=== PATIENT | female | born 1995 | race Caucasian/White ===

== ENCOUNTER 2019-07-10 12:36 | Emergency (ER) | payer OTHER ==
[2019-07-10] MEDS ORDERED: LORazepam 0.5 MG Tab PO ONE (13:20)
--- NOTE | 2019-07-10 13:33 | EDM.PDOC ---
ED HPI GENERAL MEDICAL PROBLEM - General Chief Complaint: General Stated Complaint: INCREASE HR;DIZZINESS Time Seen by Provider: 07/10/19 13:12 Source of Information: Reports: Patient History Limitations: Reports: No Limitations - History of Present Illness INITIAL COMMENTS - FREE TEXT/NARRATIVE: Patient presents with fast heart rate. She has been having episodes of this several times a day for a week. The first one was 7 days ago in the evening and lasted about 20 minutes. Now they are usually from 5-20 minutes and are accompanied by anxiety. She says she has had some anxiety prior to this but it seems worse lately with the Covid scare. She was evaluated for this by her PCP two days ago in clinic and I reviewed those notes. Labs (TSH, T4, CMP, CBC) were normal at that time except WBC was 13.9 so will recheck that today. Patient has never taken anything for anxiety. - Related Data Allergies Allergy/AdvReac Type Severity Reaction Status Date / Time No Known Drug Allergies Allergy Other Verified 07/10/19 12:50 Home Meds: Home Meds . [No Known Home Meds] 07/10/19 [History] Past Medical History Cardiovascular History: Reports: None Respiratory History: Reports: None - Past Surgical History Other HEENT Surgeries/Procedures: Surgery to throat when she was approx one year to fix "hole in throat" Cardiovascular Surgical History: Reports: None Social & Family History - Family History Family Medical History: Noncontributory - Tobacco Use Smoking Status *Q: Never Smoker - Caffeine Use Caffeine Use: Reports: None - Recreational Drug Use Recreational Drug Use: No ED ROS GENERAL - Review of Systems Review Of Systems: See Below Constitutional: Denies: Fever, Weakness HEENT: Denies: Ear Pain, Throat Pain, Vision Change Respiratory: Reports: Shortness of Breath (SOB sensation with the anxiety and racing heart but no trouble breathing she says). Denies: Wheezing, Cough Cardiovascular: Denies: Chest Pain, Lightheadedness, Syncope GI/Abdominal: Reports: Vomiting (three times yesterday). Denies: Abdominal Pain , Diarrhea : Denies: Dysuria, Flank Pain Musculoskeletal: Denies: Neck Pain, Shoulder Pain, Arm Pain, Back Pain, Hand Pain, Leg Pain Skin: Denies: Cyanosis, Jaundice, Mottled, Pallor, Diaphoresis Neurological: Reports: Dizziness (has noticed this with the racing heart and anxiety), Tingling (a little in her legs). Denies: Confusion, Headache, Trouble Speaking, Difficulty Walking, Weakness, Change in Speech Psychiatric: Reports: Anxiety. Denies: Agitation, Confusion ED EXAM, GENERAL - Physical Exam Exam: See Below Exam Limited By: No Limitations General Appearance: Alert, WD/WN, No Apparent Distress, Obese Eye Exam: Bilateral Eye: EOMI, Normal Inspection, PERRL Ears: Normal External Exam, Hearing Grossly Normal Nose: Normal Inspection, No Blood Throat/Mouth: Normal Inspection, Normal Lips, Normal Voice, No Airway Compromise Head: Atraumatic, Normocephalic Neck: Normal Inspection, Full Range of Motion Respiratory/Chest: No Respiratory Distress, Lungs Clear, Normal Breath Sounds, No Accessory Muscle Use Cardiovascular: No Murmur, Tachycardia (with regular rhythm) GI/Abdominal: Normal Bowel Sounds, Soft, Non-Tender, No Organomegaly, No Distention Back Exam: Normal Inspection, Full Range of Motion. No: CVA Tenderness (L), CVA Tenderness (R) Extremities: Normal Inspection, Normal Range of Motion Neurological: Alert, Oriented, CN II-XII Intact, Normal Cognition, Normal Gait, No Motor/Sensory Deficits Psychiatric: Normal Affect, Anxious Skin Exam: Warm, Dry, Intact, Normal Color, No Rash EKG INTERPRETATION EKG Date: 07/10/19 Rate (Beats/Min): 113 Bennett: Normal P-Wave: Present QRS: Normal ST-T: Normal QT: Normal Course - Vital Signs Last Recorded V/S: Last Vital Signs Temp 99.3 F 07/10/19 14:41 Pulse 82 07/10/19 14:41 Resp 18 07/10/19 14:41 BP 131/62 07/10/19 14:41 Pulse Ox 98 07/10/19 14:41 - Orders/Labs/Meds Orders: Active Orders 24 hr Category Date Time Status EKG Documentation Completion [RC] ASDIRECTED Care 07/10/19 12:50 Active EKG 12 Lead [EK] Stat Ther 07/10/19 12:50 Ordered Labs: Laboratory Tests 07/10/19 07/10/19 Range/Units 13:32 14:00 WBC 12.29 H (5.00-10.00) 10^3/uL RBC 5.09 (3.80-5.50) 10^6/uL Hgb 13.9 (12.0-16.0) g/dL Hct 42.0 (37.0-47.0) % MCV 82.5 (82.0-92.0) fL MCH 27.3 (27.0-31.0) pg MCHC 33.1 (32.0-36.0) g/dL RDW 14.8 H (11.5-14.5) % Plt Count 391 D (150-400) 10^3/uL MPV 9.3 (7.4-10.4) fL Immature Gran % (Auto) 0.2 (0.0-5.0) % Neut % (Auto) 77.0 H (50.0-70.0) % Lymph % (Auto) 15.5 L (20.0-40.0) % [place] % (Auto) 7.0 (2.0-8.0) % Eos % (Auto) 0.1 L (1.0-3.0) % Baso % (Auto) 0.2 (0.0-1.0) % Immature Gran # (Auto) 0.03 (0.00-0.50) 10^3/uL Neut # (Auto) 9.46 H (2.50-7.00) 10^3/uL Lymph # (Auto) 1.90 (1.00-4.00) 10^3/uL [place] # (Auto) 0.86 H (0.10-0.80) 10^3/uL Eos # (Auto) 0.01 L (0.10-0.30) 10^3/uL Baso # (Auto) 0.03 (0.00-0.10) 10^3/uL Specimen Type Urincc Urine Color Light yellow (YELLOW) Urine Appearance Slightly cloudy H (CLEAR) Urine pH 7.0 (5.0-9.0) Ur Specific [place] 1.010 (1.005-1.030) Urine Protein Negative (NEGATIVE) mg/dL Urine Glucose (UA) Negative (NEGATIVE) mg/dL Urine Ketones Negative (NEGATIVE) mg/dL Urine Occult Blood Trace-intact H (NEGATIVE) Urine Nitrite Negative (NEGATIVE) Urine Bilirubin Negative (NEGATIVE) Urine Urobilinogen 0.2 (0.2-1.0) E.U./dL Ur Leukocyte Esterase Trace H (NEGATIVE) Urine RBC 0-5 (0-5) /HPF Urine WBC 5-10 H (0-5) /HPF Ur Epithelial Cells Moderate H /LPF Amorphous Sediment Few (0/HPF) /HPF Urine Bacteria Occasional (NONE TO FEW) /HPF Meds: Medications Discontinued Medications Generic Name Dose Route Start Last Admin Trade Name Freq PRN Reason Stop Dose Admin Lorazepam 0.5 mg 07/10/19 13:20 07/10/19 13:24 Ativan PO 07/10/19 13:21 0.5 mg ONETIME ONE Administration - Re-Assessments/Exams Free Text/Narrative Re-Assessment/Exam: 07/10/19 15:02 WBC is down to 12.3, UA shows mild evidence of a UTI so will treat presumptively and get culture too. Patient is feeling better after the Lorazepam; HR in the 80's. We discussed options and she will follow up with her PCP in a week for both the urine and anxiety. I gave her Macrobid and Lorazepam prn to try the next few days. Discharged to home in stable condition. Departure - Departure Time of Disposition: 14:59 Disposition: Home, Self-Care 01 Condition: Good Clinical Impression: Anxiety UTI (urinary tract infection) Qualifiers: Urinary tract infection type: acute cystitis Hematuria presence: without hematuria Qualified Code(s): N30.00 - Acute cystitis without hematuria - Discharge Information Instructions: Urinary Tract Infection, Adult, [id number], Living With Anxiety Referrals: Paty Moore PA-C [Primary Care Provider] - Forms: ED Department Discharge Additional Instructions: 1. Drink 8 cups of water daily. 2. Take the Macrobid as directed. 3. You can use the Lorazepam as directed if needed for anxiety, but avoid driving for 8 hours afterward. 4. Follow up with your PCP in a week for recheck of the urine and discussion of options for the anxiety if it continues. Sepsis Event Note - Evaluation Sepsis Screening Result: No Definite Risk - Focused Exam Vital Signs: Vital Signs Temp Pulse Resp BP Pulse Ox 07/10/19 14:41 99.3 F 82 18 131/62 98 07/10/19 14:00 100 136/94 H 07/10/19 13:25 95 20 151/83 H 97 07/10/19 12:55 99.9 F 130 H 22 H 150/77 H 98 07/10/19 12:50 106 H 20 136/94 H Date Exam was Performed: 07/10/19 Time Exam was Performed: 14:59 - My Orders Last 24 Hours: My Active Orders 07/10/19 12:50 EKG Documentation Completion [RC] ASDIRECTED EKG 12 Lead [EK] Stat - Assessment/Plan Last 24 Hours: My Active Orders 07/10/19 12:50 EKG Documentation Completion [RC] ASDIRECTED EKG 12 Lead [EK] Stat
== END 2019-07-10 15:10 | disposition home or self-care (01) ==
LOC: KA.ED 12:36
DX: N30.00 Acute cystitis without hematuria (principal); F41.9 Anxiety disorder, unspecified
CPT/HCPCS: 36415; 81001; 85025; 87086; 93005; 99283-25; A9270-GY

== ENCOUNTER 2019-10-08 06:53 | Day surgery (SDC) | payer OTHER ==
[~2019-10-08 06:53] MED LIST: Dexamethasone 4 MG/ML SDV ONE; Ketorolac 30 MG/ML SDV ONE; Midazolam 1 MG/ML 2 ML SDV ONE; Neostigmine Methylsulfate 10 MG/10 ML MDV ONE; Propofol 200 MG/20 ML SDV ONE; Scopolamine 1.5 MG Transdermal Patch ONE; ceFAZolin 1 GM Vial ONE; fentaNYL 250 MCG/5 ML SDV ONE
[2019-10-08] MEDS ORDERED: Succinylcholine 200 MG/10 ML MDV IV ONE (06:54)
[2019-10-08] MEDS ORDERED: Lactated Ringers 1,000 ML IV ONE (06:54)
[2019-10-08] MEDS ORDERED: Scopolamine 1.5 MG Transdermal Patch TOP ONE (06:54)
[2019-10-08] MEDS ORDERED: Ondansetron 4 MG/2 ML SDV IV ONE (06:54)
[2019-10-08] MEDS ORDERED: Dexamethasone 4 MG/ML SDV IV ONE (06:54)
[2019-10-08] MEDS ORDERED: ceFAZolin 1 GM Vial IV ONE (06:54)
[2019-10-08] MEDS ORDERED: Neostigmine Methylsulfate 10 MG/10 ML MDV IV ONE (06:54)
[2019-10-08] MEDS ORDERED: Glycopyrrolate 0.2 MG/ML 5 ML MDV IV ONE (06:54)
[2019-10-08] MEDS ORDERED: Propofol 200 MG/20 ML SDV IV ONE (06:54)
[2019-10-08] MEDS ORDERED: fentaNYL 250 MCG/5 ML SDV IV ONE (06:54)
[2019-10-08] MEDS ORDERED: Rocuronium 50 MG/5 ML Vial IV ONE (06:54)
[2019-10-08] MEDS ORDERED: Midazolam 1 MG/ML 2 ML SDV IV ONE (06:54)
[2019-10-08] MEDS ORDERED: Sodium Chloride 0.9% 10 ML Syringe FLUSH PRN (07:00)
[2019-10-08] MEDS ORDERED: Lactated Ringers 1,000 ML IV SCH (07:00)
[2019-10-08] MEDS ORDERED: Bupivacaine 0.5%/EPINEPHrine 1:200,000 30 ML SDV ONE ×2 (07:02→10:15)
[2019-10-08] MEDS ORDERED: Bacitracin/Neomycin/Polymyxin B Oint 0.9 GM U/D Packet ONE (07:04)
[2019-10-08] MEDS ORDERED: Lactated Ringers 0 ML ONE (07:13)
[2019-10-08] MEDS ORDERED: Propofol 200 MG/20 ML SDV ONE (08:25)
[2019-10-08] MEDS ORDERED: ceFAZolin 1 GM Vial ONE (08:37)
--- NOTE | 2019-10-08 09:07 | PCM.PN ---
- General Info Date of Service: 10/08/19 - Review of Systems Systems Review Comment:: 24-year-old female with persistent nausea and vomiting here for cholecystectomy. She is medically stable to proceed today. The results of her recent EGD are reviewed with her. No other reason for her symptoms has been identified. There is been no significant change in her health status since her last evaluation. I have again discussed the proposed cholecystectomy with the patient. Instructions and expectations reviewed. She agrees to proceed excepting risks. - Patient Data Vitals - Most Recent: Last Vital Signs Temp 99.4 F 10/08/19 07:03 Pulse 87 10/08/19 08:45 Resp 20 10/08/19 07:03 BP 154/71 H 10/08/19 08:45 Pulse Ox 98 10/08/19 07:03 Weight - Most Recent: 142.428 kg Lab Results Last 24 Hours: Laboratory Results - last 24 hr 10/08/19 Range/Units 08:48 Urine HCG, Qual Negative (NEGATIVE) Med Orders - Current: Current Medications Lactated Ringer's (Ringers, Lactated) 1,000 mls @ 50 mls/hr IV ASDIRECTED [facility] Last Admin: 10/08/19 07:22 Dose: 50 mls/hr Documented by: Sodium Chloride (Saline Flush) 10 ml FLUSH Q8HR PRN PRN Reason: keep vein open Discontinued Medications Bupivacaine HCl/Epinephrine Bitart (Marcaine 0.5%/Epinephrine 1:200,000) Confirm Administered Dose 30 ml .ROUTE .STK-MED ONE Stop: 10/08/19 07:03 Cefazolin Sodium (Ancef) Confirm Administered Dose 2 gm .ROUTE .STK-MED ONE Stop: 10/08/19 06:47 Dexamethasone (Dexamethasone) Confirm Administered Dose 4 mg .ROUTE .STK-MED ONE Stop: 10/08/19 06:48 Fentanyl (Sublimaze) Confirm Administered Dose 250 mcg .ROUTE .STK-MED ONE Stop: 10/08/19 06:47 Lactated Ringer's (Ringers, Lactated) Confirm Administered Dose 1,000 mls @ as directed .ROUTE .STK-MED ONE Stop: 10/08/19 07:14 Ketorolac Tromethamine (Toradol) Confirm Administered Dose 30 mg .ROUTE .STK-MED ONE Stop: 10/08/19 06:48 Midazolam HCl (Versed 1 Mg/Ml) Confirm Administered Dose 4 mg .ROUTE .STK-MED ONE Stop: 10/08/19 06:47 Neomycin/Polymyxin/Bacitracin (Triple Antibiotic Oint) Confirm Administered Dose 2 each .ROUTE .STK-MED ONE Stop: 10/08/19 07:05 Neostigmine Methylsulfate (Neostigmine Methylsulfate) Confirm Administered Dose 10 mg .ROUTE .STK-MED ONE Stop: 10/08/19 06:48 Propofol (Diprivan 20 Ml) Confirm Administered Dose 200 mg .ROUTE .STK-MED ONE Stop: 10/08/19 06:48 Scopolamine (Transderm-Scop) Confirm Administered Dose 1.5 mg .ROUTE .STK-MED ONE Stop: 10/08/19 06:49 Sevoflurane (Ultane) Confirm Administered Dose 250 ml .ROUTE .STK-MED ONE Stop: 10/08/19 06:48 Sepsis Event Note - Focused Exam Vital Signs: Vital Signs Temp Pulse Resp BP Pulse Ox 10/08/19 08:45 87 154/71 H 10/08/19 07:03 99.4 F 133 H 20 164/117 H 98 Date Exam was Performed: 10/08/19 Time Exam was Performed: 09:05 - Problem List Review Problem List Initiated/Reviewed/Updated: Yes - My Orders Last 24 Hours: My Active Orders 10/07/19 13:25 Resuscitation Status Routine 10/08/19 07:00 Peripheral IV Care [RC] . DIRECTED Lactated Ringers [Ringers, Lactated] 1,000 ml IV ASDIRECTED Sodium Chloride 0.9% [Saline Flush] 10 ml FLUSH Q8HR PRN Peripheral IV Insertion Adult [OM.PC] Routine 10/08/19 Breakfast Nothing Per Oral Diet [DIET] 10/08/19 08:30 Antiembolic Devices [RC] PER UNIT ROUTINE Patient to Empty Bladder [RC] ASDIRECTED Sequential Compression Device [OM.PC] Routine 10/08/19 09:00 Verify Patient Consent Obtain [RC] ASDIRECTED - Assessment Assessment:: Symptomatic gallbladder disease - Plan Plan:: Cholecystectomy
[2019-10-08] MEDS ORDERED: Bacitracin/Neomycin/Polymyxin B Oint 0.9 GM U/D Packet TOP ONE (10:15)
--- NOTE | 2019-10-08 11:06 | PCM.OPNOTE ---
- General Post-Op/Procedure Note Date of Surgery/Procedure: 10/08/19 Operative Procedure(s): Laparoscopic cholecystectomy Findings: Normal-appearing gallbladder and adjacent liver. No other abnormalities identified laparoscopically. Pre Op Diagnosis: Symptomatic gallbladder disease Post-Op Diagnosis: Same Anesthesia Technique: General ET Tube Primary Surgeon: Lalo Fleming Pathology: Gallbladder EBL in mLs: 10 Complications: None Condition: Good Free Text/Narrative:: Intake & Output 10/07/19 10/08/19 10/08/19 22:59 06:59 14:59 Intake Total 1300 Balance 1300
[2019-10-08] MEDS ORDERED: Sodium Chloride 0.9% 50 ML SDV FLUSH PRN (11:24)
--- NOTE | 2019-10-08 13:30 | OR ---
DATE OF SURGERY: 10/08/2019 SURGEON: Lalo Fleming MD PREOPERATIVE DIAGNOSIS: Symptomatic gallbladder disease. POSTOPERATIVE DIAGNOSIS: Symptomatic gallbladder disease. OPERATION PERFORMED: Laparoscopic cholecystectomy. INDICATIONS FOR SURGERY: This 24-year-old female has profound and persistent symptoms of nausea and vomiting. Although no gallstones were noted on evaluation. Additional workup indicates the gallbladder as the source of her symptoms and she comes for cholecystectomy. FINDINGS: The patient's gallbladder appears normal externally. There is no visible acute inflammation or other abnormality. Her liver also appears normal. Other structures are normal as viewed laparoscopically. DESCRIPTION OF PROCEDURE: The patient was taken to the operating room. She was given general endotracheal anesthesia and the abdomen was sterilely prepped with Betadine and draped. A supraumbilical stab wound incision was made. Through this, a Veress needle was inserted and pneumoperitoneum via this needle was achieved with carbon dioxide to a pressure of 15 mmHg. 5 mm trocars were placed in the subxiphoid midline and also in two areas of the right abdomen. All trocar sites were infiltrated with Marcaine prior to incision. Intraabdominal inspection was carried out and attention was turned to the gallbladder. It was secured with grasping forceps placed through the lateral trocars and retracted superiorly and anteriorly. Fatty tissue overlying the cystic duct and cystic artery were carefully cleared until the cystic artery is clearly identified. It was then doubly clipped and divided near the gallbladder. Additional dissection cleared the triangle of [place] to clearly and positively identify the cystic duct. Its junction with the gallbladder is also noted. Once this had been identified, it is milked and doubly clipped and divided near the gallbladder with great care being used to avoid any injury or compromise to the common bile duct. The gallbladder was then dissected free from the undersurface of the liver using the cautery device. Once the gallbladder had been completely freed, it was extracted through the umbilical trocar site. Reinspection of the gallbladder bed showed no sign of bleeding or any other complication. The pneumoperitoneum was evacuated. The fascia of the umbilical trocar site was closed with 0 Vicryl. Wounds were irrigated with Betadine and saline solution. Skin incisions approximated with interrupted 4-0 Vicryl in a subcuticular stitch. Benzoin and Steri-Strips followed by antibiotic ointment and sterile dressings were placed. The patient was awakened, extubated, and taken from the operating room in satisfactory condition. ESTIMATED BLOOD LOSS: 10 mL. COMPLICATIONS: None. PROGNOSIS: Good. /[id number]/MODL MTDD
== END 2019-10-08 14:28 | disposition home or self-care (01) ==
LOC: KA.SDS 06:53
PROVIDERS: ATTEND Surgery
PROC: 0FT44ZZ Resection of Gallbladder, Percutaneous Endoscopic Approach (ICD-10-PCS; principal; 2019-10-08)
DX: K81.1 Chronic cholecystitis (principal); F41.9 Anxiety disorder, unspecified; D72.829 Elevated white blood cell count, unspecified; R11.2 Nausea with vomiting, unspecified; R00.2 Palpitations; E55.9 Vitamin D deficiency, unspecified; Z83.3 Family history of diabetes mellitus; Z82.49 Family history of ischemic heart disease and other diseases of the circulatory system
CPT/HCPCS: 00790; 47562; 81025; A9270; J0330; J0690; J1100; J2250; J2405; J2704; J2710; J3010; J3490; J7120

== ENCOUNTER 2022-04-24 13:09 | Emergency (ER) | payer BC ==
[2022-04-24 13:53] LABS: ANION GAP 14.8 mmol/L (5-15); CHLORIDE,CL 107 mmol/L (98-107); SODIUM,NA 142 mmol/L (136-145)
[2022-04-24 13:54] LABS: ESTIMATED GFR 113 mL/min (>=60)
== END 2022-04-24 14:45 | disposition home or self-care (01) ==
LOC: KA.ED 13:09
DX: R30.0 Dysuria (principal); E66.9 Obesity, unspecified; Z68.31 Body mass index [BMI] 31.0-31.9, adult
CPT/HCPCS: 36415; 80053; 81001; 85025; 86140; 99283; 99284

== ENCOUNTER 2022-05-15 11:50 | Emergency (ER) | payer BC ==
[2022-05-15] MEDS ORDERED: Sodium Chloride 0.9% 1,000 ML IV ONE (12:13)
[2022-05-15] MEDS ORDERED: Sodium Chloride 0.9% 10 ML Syringe FLUSH PRN (12:13)
[2022-05-15 13:26] LABS: ANION GAP 14.1 mmol/L (5-15); CHLORIDE,CL 104 mmol/L (98-107); SODIUM,NA 140 mmol/L (136-145)
[2022-05-15 13:27] LABS: ESTIMATED GFR 103 mL/min (>=60)
[2022-05-15] MEDS ORDERED: Ondansetron 4 MG/2 ML SDV IVPUSH ONE (13:31)
== END 2022-05-15 14:25 | disposition home or self-care (01) ==
LOC: KA.ED 11:50
DX: F41.9 Anxiety disorder, unspecified (principal); E66.9 Obesity, unspecified; Z68.41 Body mass index [BMI] 40.0-44.9, adult; Z79.899 Other long term (current) drug therapy
CPT/HCPCS: 80053; 85025; 96361; 96374; 99283-25; 99284; J2405; J7030

== ENCOUNTER 2022-07-02 12:55 | Emergency (ER) | payer BC ==
[2022-07-02] MEDS ORDERED: Fluconazole 100 MG Tab PO ONE (13:18)
== END 2022-07-02 14:10 | disposition home or self-care (01) ==
LOC: KA.ED 12:55
DX: B37.2 Candidiasis of skin and nail (principal); E66.9 Obesity, unspecified; Z68.42 Body mass index [BMI] 45.0-49.9, adult
CPT/HCPCS: 81001; 99283; 99284; A9270-GY

== ENCOUNTER 2022-08-15 19:45 | Emergency (ER) | payer BC ==
[2022-08-15 20:09] VITALS: BP 150/91; PULSE 83
== END 2022-08-15 21:30 | disposition home or self-care (01) ==
LOC: KA.ED 19:45
DX: R42 Dizziness and giddiness (principal); F41.9 Anxiety disorder, unspecified; F32.A Depression, unspecified; E66.9 Obesity, unspecified; Z68.32 Body mass index [BMI] 32.0-32.9, adult
CPT/HCPCS: 99283; 99284

== ENCOUNTER 2022-10-18 18:56 | Emergency (ER) | payer BC ==
[2022-10-18] MEDS: Ondansetron 4 MG Tab.DIS PO ONE (19:37)
[2022-10-18] MEDS: LORazepam 2 MG/ML SDV IM ONE (19:37)
== END 2022-10-18 20:30 | disposition home or self-care (01) ==
LOC: KA.ED 18:56
DX: F41.9 Anxiety disorder, unspecified (principal); E66.9 Obesity, unspecified; Z68.35 Body mass index [BMI] 35.0-35.9, adult
CPT/HCPCS: 96372; 99283; 99284; A9270-GY; J2060

== ENCOUNTER 2022-10-25 18:27 | Emergency (ER) | payer BC ==
[2022-10-25 19:09] LABS: BASOPHILS ABSOLUTE AUTO 0.02 10^3/uL (0.00-0.10); BASOPHILS PERCENT AUTO 0.2 % (0.0-1.0); EOSINOPHILS ABSOLUTE AUTO 0.07 10^3/uL (0.10-0.30); EOSINOPHILS PERCENT AUTO 0.7 % (1.0-3.0); HEMATOCRIT 43.3 % (37.0-47.0); HEMOGLOBIN 14.2 g/dL (12.0-16.0); IMMATURE GRAN ABSOLUTE AUTO 0.01 10^3/uL (0.00-0.50); IMMATURE GRAN PERCENT AUTO 0.1 % (0.0-5.0); LYMPHOCYTES ABSOLUTE AUTO 2.64 10^3/uL (1.00-4.00); LYMPHOCYTES PERCENT AUTO 26.8 % (20.0-40.0); MEAN CORPUSCULAR HEMOGLOBIN 26.9 pg (27.0-31.0); MEAN CORPUSCULAR HGB CONC 32.8 g/dL (32.0-36.0); MEAN CORPUSCULAR VOLUME 82.2 fL (82.0-92.0); MEAN PLATELET VOLUME 9.3 fL (7.4-10.4); MONOCYTES ABSOLUTE AUTO 0.74 10^3/uL (0.10-0.80); MONOCYTES PERCENT AUTO 7.5 % (2.0-8.0); NEUTROPHILS ABSOLUTE AUTO 6.36 10^3/uL (2.50-7.00); NEUTROPHILS PERCENT AUTO 64.7 % (50.0-70.0); PLATELET COUNT,PLT 346 10^3/uL (150-400); RED BLOOD CELL COUNT 5.27 10^6/uL (3.80-5.50); RED CELL DISTRIBUTION WIDTH 14.2 % (11.5-14.5); WHITE BLOOD CELL COUNT,WBC 9.84 10^3/uL (5.00-10.00)
[2022-10-25 19:20] LABS: ALANINE AMINOTRANSFERASE,ALT 27 U/L (14-63); ALBUMIN 3.87 g/dL (3.40-5.00); ALKALINE PHOSPHATASE 70 U/L (46-116); ANION GAP 16.4 mmol/L (5-15); ASPARTATE AMNIOTRANSFERASE,AST 16 U/L (15-37); BILIRUBIN TOTAL 0.3 mg/dL (0.2-1.0); BLOOD UREA NITROGEN,BUN 13 mg/dL (7-18); CALCIUM 9.1 mg/dL (8.7-10.3); CARBON DIOXIDE,CO2 24.9 mmol/L (21.0-32.0); CHLORIDE,CL 104 mmol/L (98-107); CREATININE 0.85 mg/dL (0.51-1.17); EST CRCL DRUG DOSING (CG) 96.68 mL/min; ESTIMATED GFR 96 mL/min (>=60); ETHANOL BLOOD MEDICAL < 3 mg/dL (NOT DETECTED); GLUCOSE RANDOM 84 mg/dL (70-140); POTASSIUM,K 4.3 mmol/L (3.5-5.1); PROTEIN TOTAL,TP 7.3 g/dL (6.4-8.2); SODIUM,NA 141 mmol/L (136-145)
[2022-10-25 19:22] LABS: HCG QUALITATIVE,SERUM NEGATIVE (NEGATIVE)
[2022-10-25 20:14] LABS: AMPHETAMINES SCREEN, URINE NEGATIVE (NEGATIVE); BARBITURATE SCREEN,URINE NEGATIVE (NEGATIVE); BENZODIAZEPINES SCREEN,URINE NEGATIVE (NEGATIVE); COCAINE METABOLITES,URINE NEGATIVE (NEGATIVE); METHADONE SCREEN, URINE NEGATIVE (NEGATIVE); METHAMPHETAMINES SCREEN, URINE NEGATIVE (NEGATIVE); OXYCODONE SCREEN,URINE NEGATIVE (NEGATIVE); PCP SCREEN,URINE NEGATIVE (NEGATIVE); PROPOXYPHENE SCREEN,URINE NEGATIVE (NEGATIVE); TCA SCREEN,URINE NEGATIVE (NEGATIVE); THC SCREEN,URINE 50 NG/ML NEGATIVE (NEGATIVE)
[2022-10-25] MEDS: QUEtiapine 25 MG Tab PO ONE (20:45)
== END 2022-10-25 20:57 | disposition home or self-care (01) ==
LOC: KA.ED 18:27
DX: F41.8 Other specified anxiety disorders (principal); F42.9 Obsessive-compulsive disorder, unspecified; E66.9 Obesity, unspecified; Z79.899 Other long term (current) drug therapy; Z68.34 Body mass index [BMI] 34.0-34.9, adult
CPT/HCPCS: 36415; 80053; 80305-QW; 80307; 84703; 85025; 99283; 99284; A9270-GY

== ENCOUNTER 2022-10-29 14:57 | Emergency (ER) | payer BC ==
[2022-10-29] MEDS ORDERED: Diazepam 5 MG Tab PO ONE ×2 (16:29→17:08)
[2022-10-29 17:41] LABS: AMPHETAMINES SCREEN, URINE NEGATIVE (NEGATIVE); BARBITURATE SCREEN,URINE NEGATIVE (NEGATIVE); BENZODIAZEPINES SCREEN,URINE POSITIVE (NEGATIVE); COCAINE METABOLITES,URINE NEGATIVE (NEGATIVE); METHADONE SCREEN, URINE NEGATIVE (NEGATIVE); METHAMPHETAMINES SCREEN, URINE NEGATIVE (NEGATIVE); OXYCODONE SCREEN,URINE NEGATIVE (NEGATIVE); PCP SCREEN,URINE NEGATIVE (NEGATIVE); PROPOXYPHENE SCREEN,URINE NEGATIVE (NEGATIVE); TCA SCREEN,URINE NEGATIVE (NEGATIVE); THC SCREEN,URINE 50 NG/ML NEGATIVE (NEGATIVE)
== END 2022-10-29 17:15 | disposition home or self-care (01) ==
LOC: KA.ED 14:57
DX: F41.0 Panic disorder [episodic paroxysmal anxiety] (principal); F42.9 Obsessive-compulsive disorder, unspecified; E66.9 Obesity, unspecified; Z68.34 Body mass index [BMI] 34.0-34.9, adult
CPT/HCPCS: 80305-QW; 99283; 99284; A9270-GY

== ENCOUNTER 2022-11-04 20:37 | Emergency (ER) | payer BC ==
[2022-11-04] MEDS ORDERED: Sodium Chloride 0.9% 10 ML Syringe FLUSH PRN (21:05)
[2022-11-04 21:18] LABS: BASOPHILS ABSOLUTE AUTO 0.03 10^3/uL (0.00-0.10); BASOPHILS PERCENT AUTO 0.3 % (0.0-1.0); EOSINOPHILS ABSOLUTE AUTO 0.21 10^3/uL (0.10-0.30); EOSINOPHILS PERCENT AUTO 2.4 % (1.0-3.0); HEMATOCRIT 43.6 % (37.0-47.0); IMMATURE GRAN ABSOLUTE AUTO 0.02 10^3/uL (0.00-0.50); IMMATURE GRAN PERCENT AUTO 0.2 % (0.0-5.0); LYMPHOCYTES PERCENT AUTO 39.3 % (20.0-40.0); MEAN CORPUSCULAR HEMOGLOBIN 26.9 pg (27.0-31.0); MEAN CORPUSCULAR HGB CONC 32.1 g/dL (32.0-36.0); MEAN CORPUSCULAR VOLUME 83.8 fL (82.0-92.0); MONOCYTES ABSOLUTE AUTO 0.65 10^3/uL (0.10-0.80); MONOCYTES PERCENT AUTO 7.3 % (2.0-8.0); NEUTROPHILS PERCENT AUTO 50.5 % (50.0-70.0); RED CELL DISTRIBUTION WIDTH 14.7 % (11.5-14.5); WHITE BLOOD CELL COUNT,WBC 8.91 10^3/uL (5.00-10.00)
[2022-11-04 21:30] LABS: HCG QUALITATIVE,SERUM NEGATIVE (NEGATIVE)
[2022-11-04 21:36] LABS: ANION GAP 9.3 mmol/L (5-15); BLOOD UREA NITROGEN,BUN 10 mg/dL (7-18); CALCIUM 8.9 mg/dL (8.7-10.3); CHLORIDE,CL 104 mmol/L (98-107); CREATININE 0.73 mg/dL (0.51-1.17); EST CRCL DRUG DOSING (CG) 112.57 mL/min; ESTIMATED GFR 116 mL/min (>=60); GLUCOSE RANDOM 79 mg/dL (70-140); SODIUM,NA 132 mmol/L (136-145)
[2022-11-04 21:37] LABS: ACETAMINOPHEN < 0.0 ug/mL (10.0-30.0); ETHANOL BLOOD MEDICAL < 3 mg/dL (NOT DETECTED)
[2022-11-04 21:38] LABS: POTASSIUM,K 4.3 mmol/L (3.5-5.1)
[2022-11-04 21:43] LABS: PLATELET COUNT,PLT 290 10^3/uL (150-400)
[2022-11-04 22:07] LABS: AMPHETAMINES SCREEN, URINE NEGATIVE (NEGATIVE); BARBITURATE SCREEN,URINE NEGATIVE (NEGATIVE); BENZODIAZEPINES SCREEN,URINE POSITIVE (NEGATIVE); COCAINE METABOLITES,URINE NEGATIVE (NEGATIVE); METHADONE SCREEN, URINE NEGATIVE (NEGATIVE); METHAMPHETAMINES SCREEN, URINE NEGATIVE (NEGATIVE); OXYCODONE SCREEN,URINE NEGATIVE (NEGATIVE); PCP SCREEN,URINE NEGATIVE (NEGATIVE); PROPOXYPHENE SCREEN,URINE NEGATIVE (NEGATIVE); TCA SCREEN,URINE NEGATIVE (NEGATIVE); THC SCREEN,URINE 50 NG/ML NEGATIVE (NEGATIVE)
== END 2022-11-04 23:10 | disposition home or self-care (01) ==
LOC: KA.ED 20:37
DX: F42.9 Obsessive-compulsive disorder, unspecified (principal); F41.0 Panic disorder [episodic paroxysmal anxiety]; E66.9 Obesity, unspecified; Z68.34 Body mass index [BMI] 34.0-34.9, adult; Z79.899 Other long term (current) drug therapy
CPT/HCPCS: 36415; 80048; 80143; 80305-QW; 80307; 84703; 85025; 96374; 99283-25; 99284; J3360; J3490

== ENCOUNTER 2022-12-11 14:41 | Emergency (ER) | payer BC ==
[2022-12-11] MEDS: LORazepam 2 MG/ML SDV IM ONE (15:05)
== END 2022-12-11 15:15 | disposition home or self-care (01) ==
LOC: KA.ED 14:41
DX: F41.9 Anxiety disorder, unspecified (principal); F41.0 Panic disorder [episodic paroxysmal anxiety]
CPT/HCPCS: 96372; 99283; 99284; J2060

== ENCOUNTER 2022-12-25 07:37 | Emergency (ER) | payer BC ==
[2022-12-25] MEDS: Ondansetron 4 MG/2 ML SDV IVPUSH ONE (08:00)
[2022-12-25] MEDS: Sodium Chloride 0.9% 10 ML Syringe FLUSH PRN (08:00)
[2022-12-25] MEDS: Ondansetron 4 MG/2 ML SDV ONE (08:03)
[2022-12-25 08:11] LABS: BASOPHILS ABSOLUTE AUTO 0.03 10^3/uL (0.00-0.10); BASOPHILS PERCENT AUTO 0.4 % (0.0-1.0); EOSINOPHILS ABSOLUTE AUTO 0.11 10^3/uL (0.10-0.30); EOSINOPHILS PERCENT AUTO 1.6 % (1.0-3.0); HEMATOCRIT 45.7 % (37.0-47.0); HEMOGLOBIN 14.8 g/dL (12.0-16.0); LYMPHOCYTES ABSOLUTE AUTO 2.25 10^3/uL (1.00-4.00); LYMPHOCYTES PERCENT AUTO 33.3 % (20.0-40.0); MEAN CORPUSCULAR HGB CONC 32.4 g/dL (32.0-36.0); MEAN CORPUSCULAR VOLUME 83.2 fL (82.0-92.0); MEAN PLATELET VOLUME 9.6 fL (7.4-10.4); MONOCYTES ABSOLUTE AUTO 0.59 10^3/uL (0.10-0.80); MONOCYTES PERCENT AUTO 8.7 % (2.0-8.0); NEUTROPHILS ABSOLUTE AUTO 3.78 10^3/uL (2.50-7.00); PLATELET COUNT,PLT 355 10^3/uL (150-400); RED BLOOD CELL COUNT 5.49 10^6/uL (3.80-5.50); RED CELL DISTRIBUTION WIDTH 14.4 % (11.5-14.5); WHITE BLOOD CELL COUNT,WBC 6.76 10^3/uL (5.00-10.00)
[2022-12-25 08:17] LABS: CARBON DIOXIDE,CO2 25.2 mmol/L (21.0-32.0); CREATININE 0.76 mg/dL (0.51-1.17); EST CRCL DRUG DOSING (CG) 108.13 mL/min
[2022-12-25 08:21] LABS: ANION GAP 14.9 mmol/L (5-15); POTASSIUM,K 5.1 mmol/L (3.5-5.1)
[2022-12-25] MEDS: ClonazePAM 0.5 MG Tab PO ONE (08:34)
[2022-12-25 09:06] VITALS: BP 123/88; PULSE 65
== END 2022-12-25 09:10 | disposition home or self-care (01) ==
LOC: KA.ED 07:37
DX: F41.0 Panic disorder [episodic paroxysmal anxiety] (principal); E66.9 Obesity, unspecified; Z79.899 Other long term (current) drug therapy; Z68.32 Body mass index [BMI] 32.0-32.9, adult
CPT/HCPCS: 36415; 80048; 85025; 96374; 96375; 99284-25; A9270-GY; J2405; J3360; J3490

== ENCOUNTER 2022-12-30 15:23 | Emergency (ER) | payer BC ==
[2022-12-30] MEDS ORDERED: LORazepam 2 MG/ML SDV IVPUSH ONE (15:34)
[2022-12-30] MEDS ORDERED: Sodium Chloride 0.9% 10 ML Syringe FLUSH PRN (15:34)
[2022-12-30 16:08] LABS: BASOPHILS ABSOLUTE AUTO 0.03 10^3/uL (0.00-0.10); BASOPHILS PERCENT AUTO 0.3 % (0.0-1.0); EOSINOPHILS ABSOLUTE AUTO 0.01 10^3/uL (0.10-0.30); EOSINOPHILS PERCENT AUTO 0.1 % (1.0-3.0); HEMOGLOBIN 14.2 g/dL (12.0-16.0); IMMATURE GRAN ABSOLUTE AUTO 0.01 10^3/uL (0.00-0.50); IMMATURE GRAN PERCENT AUTO 0.1 % (0.0-5.0); LYMPHOCYTES ABSOLUTE AUTO 1.87 10^3/uL (1.00-4.00); LYMPHOCYTES PERCENT AUTO 17.5 % (20.0-40.0); MEAN CORPUSCULAR HEMOGLOBIN 27.2 pg (27.0-31.0); MEAN CORPUSCULAR VOLUME 82.4 fL (82.0-92.0); MEAN PLATELET VOLUME 9.6 fL (7.4-10.4); MONOCYTES ABSOLUTE AUTO 0.69 10^3/uL (0.10-0.80); MONOCYTES PERCENT AUTO 6.4 % (2.0-8.0); NEUTROPHILS PERCENT AUTO 75.6 % (50.0-70.0); PLATELET COUNT,PLT 312 10^3/uL (150-400); RED BLOOD CELL COUNT 5.22 10^6/uL (3.80-5.50); RED CELL DISTRIBUTION WIDTH 13.9 % (11.5-14.5); WHITE BLOOD CELL COUNT,WBC 10.71 10^3/uL (5.00-10.00)
[2022-12-30 16:21] LABS: ANION GAP 18.9 mmol/L (5-15); BLOOD UREA NITROGEN,BUN 10 mg/dL (7-18); CALCIUM 8.9 mg/dL (8.7-10.3); CHLORIDE,CL 105 mmol/L (98-107); CREATININE 0.91 mg/dL (0.51-1.17); GLUCOSE RANDOM 97 mg/dL (70-140); POTASSIUM,K 3.9 mmol/L (3.5-5.1); SODIUM,NA 141 mmol/L (136-145)
[2022-12-30 16:23] LABS: ESTIMATED GFR 89 mL/min (>=60)
[2022-12-30 16:25] LABS: ACETAMINOPHEN < 0.0 ug/mL (10.0-30.0); ETHANOL BLOOD MEDICAL < 3 mg/dL (NOT DETECTED)
[2022-12-30 16:27] LABS: HCG QUALITATIVE,SERUM NEGATIVE (NEGATIVE)
[2022-12-30 16:29] VITALS: BP 118/91; PULSE 88
== END 2022-12-30 18:53 | disposition home or self-care (01) ==
LOC: KA.ED 15:23
DX: F41.0 Panic disorder [episodic paroxysmal anxiety] (principal); E66.9 Obesity, unspecified; Z68.34 Body mass index [BMI] 34.0-34.9, adult; Z79.899 Other long term (current) drug therapy
CPT/HCPCS: 36415; 80048; 80143; 80307; 84703; 85025; 96374; 99284-25; J2060

== ENCOUNTER 2023-01-08 07:27 | Emergency (ER) | payer BC ==
[2023-01-08] MEDS ORDERED: LORazepam 2 MG/ML SDV IM ONE (08:15)
[2023-01-08] MEDS ORDERED: Ondansetron 4 MG Tab.DIS PO ONE (08:15)
== END 2023-01-08 08:30 | disposition home or self-care (01) ==
LOC: KA.ED 07:27
DX: F41.0 Panic disorder [episodic paroxysmal anxiety] (principal)
CPT/HCPCS: 96372; 99283; 99284; A9270-GY; J2060

== ENCOUNTER 2023-01-20 13:18 | Emergency (ER) | payer BC ==
[2023-01-20] MEDS: Diazepam 5 MG Tab PO ONE (14:35)
== END 2023-01-20 15:30 | disposition home or self-care (01) ==
LOC: KA.ED 13:18
DX: F41.0 Panic disorder [episodic paroxysmal anxiety] (principal); E66.9 Obesity, unspecified; Z68.34 Body mass index [BMI] 34.0-34.9, adult; Z79.899 Other long term (current) drug therapy; Z90.49 Acquired absence of other specified parts of digestive tract
CPT/HCPCS: 99283; A9270-GY

== ENCOUNTER 2023-05-05 19:58 | Emergency (ER) | payer BC ==
[2023-05-05 20:06] VITALS: BP 141/87; PULSE 74
[2023-05-05] MEDS: Amoxicillin 500 MG Cap PO ONE (20:19)
[2023-05-05] MEDS: Hydrocortisone/Neomycin/Polymyxin B Otic Susp 10 ML Bottle EARRT ONE (20:20)
== END 2023-05-05 20:30 | disposition home or self-care (01) ==
LOC: KA.ED 19:58
DX: H60.391 Other infective otitis externa, right ear (principal); H65.04 Acute serous otitis media, recurrent, right ear; Z79.899 Other long term (current) drug therapy; Z90.49 Acquired absence of other specified parts of digestive tract
CPT/HCPCS: 99282; A9270-GY

== ENCOUNTER 2023-07-16 15:24 | Emergency (ER) | payer BC ==
[2023-07-16] MEDS: Amoxicillin 500 MG Cap PO ONE (16:03)
== END 2023-07-16 16:10 | disposition home or self-care (01) ==
LOC: KA.ED 15:24
DX: J02.9 Acute pharyngitis, unspecified (principal); Z79.899 Other long term (current) drug therapy
CPT/HCPCS: 99282; 99283; A9270-GY

== ENCOUNTER 2023-07-18 19:22 | Emergency (ER) | payer BC ==
[2023-07-18] MEDS: Amoxicillin/Clavulanate K 875-125 MG Tab PO ONE (20:03)
== END 2023-07-18 20:05 | disposition home or self-care (01) ==
LOC: KA.ED 19:22
DX: H66.91 Otitis media, unspecified, right ear (principal); E66.9 Obesity, unspecified; Z79.899 Other long term (current) drug therapy; Z96.22 Myringotomy tube(s) status; Z68.31 Body mass index [BMI] 31.0-31.9, adult
CPT/HCPCS: 99283; A9270